=== PATIENT | male | born 1975 | race Caucasian/White ===

== ENCOUNTER → 2016-05-08 | Outpatient (CLI) | payer BC, OTHER ==
[2016-05-08 08:28] LABS: CHLORIDE,CL 107 mmol/L (98-110); SODIUM,NA 140 mmol/L (136-146)
--- NOTE | 2016-05-08 12:21 | US ---
EXAMINATION: Renal ultrasound HISTORY: Renal calculus COMPARISON: 09/05/2015 TECHNIQUE: Grayscale and color Doppler images obtained of the kidneys and bladder. FINDINGS: Right kidney measures 12.0 and the left kidney measures 11.3 cm [id number] without evide nce of hydronephrosis. Small bilateral shadowing stones are noted. Normal color Doppler flow bilater ally. No renal masses or perinephric fluid collections. The urinary bladder appears normal. The left urine jet is not identified. IMPRESSION: 1. Small shadowing stones bilaterally without evidence of obstructive uropathy.
== END ==
LOC: MW.US 07:53
PROVIDERS: ATTEND Internal Medicine
DX: N20.0 Calculus of kidney (principal); E66.9 Obesity, unspecified; R03.0 Elevated blood-pressure reading, without diagnosis of hypertension; E78.00 Pure hypercholesterolemia, unspecified
CPT/HCPCS: 36415; 76775; 76775-26; 80053; 80061; 84550; 85025

== ENCOUNTER 2016-09-08 16:48 | Emergency (ER) | payer BC ==
[2016-09-08 17:06] VITALS: BP 151/100
[2016-09-08] MEDS ORDERED: Diphtheria,Pertussis(Acell),Tetanus Vaccine 0.5 ML Syringe IM ONE (17:36)
--- NOTE | 2016-09-08 17:37 | EDM.PDOC ---
ED HPI GENERAL MEDICAL PROBLEM - General Chief Complaint: General Stated Complaint: PT STEP ON NAIL,LT FOOT Time Seen by Provider: 09/08/16 17:25 Source of Information: Reports: Patient History Limitations: Reports: No Limitations - History of Present Illness INITIAL COMMENTS - FREE TEXT/NARRATIVE: HISTORY AND PHYSICAL: History of present illness: [Patient comes to the emergency room complaining of right mid foot pain. States that he stepped on a prosper nail last evening around 10 PM that went through his shoe. He pulled the nail out of his foot and was able to work to work today in his steel toed boots without any problem. This evening he tried to put on a different shoe but experienced pain and swelling to his right foot. He cannot remember when his last tetanus shot was given and requests an update today. He' s had no fever chills. no drainage from the puncture site. No muscle or joint aches or pain. No abdominal pain, nausea or vomiting. He has no other complaints or concerns.] Review of systems: As per history of present illness and below otherwise all systems reviewed and negative. Past medical history: As per history of present illness and as reviewed below otherwise noncontributory. Surgical history: As per history of present illness and as reviewed below otherwise noncontributory. Social history: No reported history of drug or alcohol abuse. Family history: As per history of present illness and as reviewed below otherwise noncontributory. Physical exam: HEENT: Atraumatic, normocephalic. Lungs: Clear to auscultation, breath sounds equal bilaterally. Heart: S1S2, regular rate and rhythm. Extremities: Scant over puncture wound to right midfoot. No surrounding erythema , swelling or tenderness. Is otherwise atraumatic. No foot swelling noticed. Neurovascular unremarkable. Neuro: Awake, alert, oriented. Motor and sensory unremarkable throughout. Exam nonfocal. Therapeutics: [Adacel] Impression: [Puncture wound right foot] Plan: [Adacel updated in ER. Recommended he soak his foot in Epsom salts and try to dislodge the scab to the puncture site. Discussed with the patient that his blood pressure is elevated in the ER today. Recommend that he follow-up with PCP this week for reevaluation of his blood pressure. Will treat prophylactically with cephalexin. Rx written for Keflex 500 mg #30 sig 1 by mouth 3 times a day no refills. He is in agreement with today's plan. All the questions are answered and concerns are addressed.] Definitive disposition and diagnosis as appropriate pending reevaluation and review of above. - Related Data Allergies Allergy/AdvReac Type Severity Reaction Status Date / Time No Known Allergies Allergy Verified 09/08/16 17:06 Home Meds: Home Meds Cephalexin [IMW: Cephalexin] 500 mg PO TID #21 cap 09/08/16 [Rx] Pantoprazole Sodium [Protonix] 20 mg PO DAILY 09/08/16 [History] Past Medical History - Past Health History Medical/Surgical History: Denies Medical/Surgical History Cardiovascular History: Reports: Hypertension Gastrointestinal History: Reports: GERD Social & Family History - Family History Family Medical History: Noncontributory - Tobacco Use Smoking Status *Q: Never Smoker - Recreational Drug Use Recreational Drug Use: No ED ROS GENERAL - Review of Systems Review Of Systems: ROS reveals no pertinent complaints other than HPI. ED EXAM, GENERAL - Physical Exam Exam: See Below Course - Vital Signs Last Recorded V/S: Last Vital Signs Temp 97 F 09/08/16 17:02 Pulse 87 09/08/16 17:02 Resp 16 09/08/16 17:02 BP 151/100 H 09/08/16 17:02 Pulse Ox 96 09/08/16 17:02 - Orders/Labs/Meds Orders: Active Orders 24 hr Category Date Time Status Vaccines to be Administered [RC] PER UNIT ROUTINE Care 09/08/16 17:36 Active Meds: Medications Discontinued Medications Generic Name Dose Route Start Last Admin Trade Name Freq PRN Reason Stop Dose Admin Diphtheria/Tetanus/Acell Pertussis 0.5 ml 09/08/16 17:36 09/08/16 18:12 Adacel IM 09/08/16 17:37 0.5 ml .ONCE ONE Administration Departure - Departure Time of Disposition: 18:20 Disposition: Home, Self-Care 01 Condition: Good Clinical Impression: Puncture wound of right foot Qualifiers: Encounter type: initial encounter Qualified Code(s): S91.331A - Puncture wound without foreign body, right foot, initial encounter - Discharge Information Prescriptions: Cephalexin [IMW: Cephalexin] 500 mg PO TID #21 cap Instructions: Puncture Wound, [id number] Referrals: PCP,None [Primary Care Provider] - Forms: ED Department Discharge Additional Instructions: The following information is given to patients seen in the emergency department who are being discharged to home. This information is to outline your options for follow-up care. We provide all patients seen in our emergency department with a follow-up referral. The need for follow-up, as well as the timing and circumstances, are variable depending upon the specifics of your emergency department visit. If you don't have a primary care physician on staff, we will provide you with a referral. We always advise you to contact your personal physician following an emergency department visit to inform them of the circumstance of the visit and for follow-up with them and/or the need for any referrals to a consulting specialist. The emergency department will also refer you to a specialist when appropriate. This referral assures that you have the opportunity for follow-up care with a specialist. All of these measure are taken in an effort to provide you with optimal care, which includes your follow-up. Under all circumstances we always encourage you to contact your private physician who remains a resource for coordinating your care. When calling for follow-up care, please make the office aware that this follow-up is from your recent emergency room visit. If for any reason you are refused follow-up, please contact the [facility] emergency department at and asked to speak to the emergency department charge nurse. [facility] [address] [place] [id number] Follow-up with your primary care provider at the clinic listed above to review your blood pressure in the next week. Take antibiotics as prescribed. Your prescriptions been sent electronically to [place] [facility] in [employer] [facility] [employer]. Return to ER as needed as discussed. - My Orders Last 24 Hours: My Active Orders 09/08/16 17:36 Vaccines to be Administered [RC] PER UNIT ROUTINE - Assessment/Plan Last 24 Hours: My Active Orders 09/08/16 17:36 Vaccines to be Administered [RC] PER UNIT ROUTINE
== END 2016-09-08 18:27 | disposition home or self-care (01) ==
LOC: MW.ED 16:48
DX: S91.331A Puncture wound without foreign body, right foot, initial encounter (principal); I10 Essential (primary) hypertension; Z23 Encounter for immunization; K21.9 Gastro-esophageal reflux disease without esophagitis; Z79.899 Other long term (current) drug therapy; W45.0XXA Nail entering through skin, initial encounter
CPT/HCPCS: 90471; 90715; 99282; 99282-25

== ENCOUNTER 2017-06-26 16:41 | Emergency (ER) | payer BC ==
[2017-06-26] MEDS ORDERED: Sodium Chloride 0.9% 1,000 ML IV ONE (16:44)
--- NOTE | 2017-06-26 16:53 | EDM.PDOC ---
ED HPI GENERAL MEDICAL PROBLEM - General Chief Complaint: Chest Pain Stated Complaint: NUMBNESS OF FACE Time Seen by Provider: 06/26/17 16:45 - History of Present Illness INITIAL COMMENTS - FREE TEXT/NARRATIVE: HISTORY AND PHYSICAL: History of present illness: [42-year-old male presenting [facility] with one hour of left-sided jaw pain and left arm numbness with past medical history of hypertension. Patient states that today while sitting at his desk and watching YouTube he began to have a mild headache. This progressed to the point where he felt that the headache was extending into his neck. At approximately 1600 he began having left jaw pain and left arm numbness. Secondary to the headache and left arm numbness he presented to the emergency department for further evaluation. He denies any associated nausea, vomiting, diaphoresis, chest pain, palpitations, shortness of breath, or syncopal episodes. He does admit to over the past 6 month having episodes of chest tightness. He admits to having a history of hypertension however is not taking any medication secondary to "not needing them ". He does follow [facility] and was seen there in April. He states that at that time his blood pressure was not significant enough that medications were restarted. The left arm numbness and left jaw pain seemed to be relieved by the time he got to the emergency department at 1700 approximately 1 hour after it started. He continued to have headache as well as neck pain. states that up to this point he's been feeling his normal self and denies any recent illness. ] Review of systems: As per history of present illness and below otherwise all systems reviewed and negative. Past medical history: As per history of present illness and as reviewed below otherwise noncontributory. Surgical history: As per history of present illness and as reviewed below otherwise noncontributory. Social history: No reported history of drug or alcohol abuse. Family history: As per history of present illness and as reviewed below otherwise noncontributory. Physical exam: HEENT: Atraumatic, normocephalic, pupils reactive, negative for conjunctival pallor or scleral icterus, mucous membranes moist, throat clear, neck supple, nontender, trachea midline. Lungs: Clear to auscultation, breath sounds equal bilaterally, chest nontender. Heart: S1S2, regular, negative for clicks, rubs, or JVD. Abdomen: Soft, nondistended, nontender. Negative for masses or hepatosplenomegaly. Negative for costovertebral tenderness. Pelvis: Stable nontender. Genitourinary: Deferred. Rectal: Deferred. Extremities: Atraumatic, negative for cords or calf pain. Neurovascular unremarkable. Neuro: Awake, alert, oriented. Cranial nerves II through XII unremarkable. Cerebellum unremarkable. Motor and sensory unremarkable throughout. Exam nonfocal. Diagnostics: [CBC, CMP, troponin, EKG, CT head] Therapeutics: [] Impression: [Tension headache, uncontrolled hypertension type II] Plan: [Patient's headache was most likely related to his hypertension. When he came in his initial blood pressure was 184/114. We retook it approximate 30 minutes later and it was 154/84. He has been on multiple medications or his hypertension with side effects that he could not tolerate. He's been on 2 different ARB's, 2 different ashish inhibitors, hydrochlorothiazide, calcium channel odell, as well as 2 different beta blockers with all unwanted side effects. Did discuss with patient possible other medications that may be appropriate such as alpha antagonists or other centrally acting medications. He should also have further evaluation to see why he may have had this episode of increased hypertension. [facility] and I suggested that he follow-up within the next week to have further evaluation for this. At this time patient is comfortable and does not want to start a new medication. His CBC , CMP, troponin, EKG, and CT of the head were unremarkable. Patient was discharged in good condition with instruction to return to emergency department if he has any new or worsening symptoms.] neck pain Pain Score (Numeric/FACES): 3 - Related Data Allergies Allergy/AdvReac Type Severity Reaction Status Date / Time acetaminophen Allergy Vomiting Verified 06/26/17 16:46 [From Tylenol-Codeine #3] codeine Allergy Vomiting Verified 06/26/17 16:46 [From Tylenol-Codeine #3] Home Meds: Home Meds Pantoprazole Sodium [Protonix] 20 mg PO DAILY 09/08/16 [History] Past Medical History - Past Health History Medical/Surgical History: Denies Medical/Surgical History HEENT History: Reports: None Cardiovascular History: Reports: Hypertension Respiratory History: Reports: None Gastrointestinal History: Reports: GERD Genitourinary History: Reports: None Musculoskeletal History: Reports: None Neurological History: Reports: None Psychiatric History: Reports: None Endocrine/Metabolic History: Reports: None Hematologic History: Reports: None Immunologic History: Reports: None Oncologic (Cancer) History: Reports: None Dermatologic History: Reports: None - Past Surgical History Head Surgeries/Procedures: Reports: None HEENT Surgical History: Reports: None Cardiovascular Surgical History: Reports: None Respiratory Surgical History: Reports: None GI Surgical History: Reports: Hernia, Abdominal Male Surgical History: Reports: None Endocrine Surgical History: Reports: None Neurological Surgical History: Reports: None Musculoskeletal Surgical History: Reports: None Oncologic Surgical History: Reports: None Dermatological Surgical History: Reports: None Social & Family History - Family History Family Medical History: Noncontributory - Tobacco Use Smoking Status *Q: Never Smoker Second Hand Smoke Exposure: No - Caffeine Use Caffeine Use: Reports: None - Recreational Drug Use Recreational Drug Use: No ED ROS GENERAL - Review of Systems Review Of Systems: See Below ED EXAM, GENERAL - Physical Exam Exam: See Below Course - Vital Signs Last Recorded V/S: Last Vital Signs Temp 97.4 F 06/26/17 18:11 Pulse 83 06/26/17 18:11 Resp 18 06/26/17 18:11 BP 152/84 H 06/26/17 18:11 Pulse Ox 95 06/26/17 18:11 - Orders/Labs/Meds Orders: Active Orders 24 hr Category Date Time Status EKG Documentation Completion [RC] STAT Care 06/26/17 16:44 Active Chest 1V Frontal [CR] Stat Exams 06/26/17 16:44 Taken Head wo Cont [CT] Stat Exams 06/26/17 16:44 Taken Labs: Laboratory Tests 06/26/17 06/26/17 Range/Units 16:45 16:45 WBC 6.94 (4.0-11.0) K/uL RBC 4.78 (4.50-5.90) M/uL Hgb 16.1 (13.0-17.0) g/dL Hct 44.4 (38.0-50.0) % MCV 92.9 (80.0-98.0) fL MCH 33.7 H (27.0-32.0) pg MCHC 36.3 (31.0-37.0) g/dL RDW Std Deviation 42.7 (28.0-62.0) fl RDW Coeff of Chetan 13 (11.0-15.0) % Plt Count 162 (150-400) K/uL MPV 10.70 (7.40-12.00) fL Neut % (Auto) 53.4 (48.0-80.0) % Lymph % (Auto) 34.0 (16.0-40.0) % [place] % (Auto) 10.8 (0.0-15.0) % Eos % (Auto) 1.7 (0.0-7.0) % Baso % (Auto) 0.1 (0.0-1.5) % Neut # (Auto) 3.7 (1.4-5.7) K/uL Lymph # (Auto) 2.4 (0.6-2.4) K/uL [place] # (Auto) 0.8 (0.0-0.8) K/uL Eos # (Auto) 0.1 (0.0-0.7) K/uL Baso # (Auto) 0.0 (0.0-0.1) K/uL Nucleated RBC % 0.0 /100WBC Nucleated RBCs # 0 K/uL Sodium 136 (136-148) mmol/L Potassium 3.6 (3.5-5.1) mmol/L Chloride 102 (98-107) mmol/L Carbon Dioxide 22.3 (21.0-32.0) mmol/L BUN 13 (7.0-18.0) mg/dL Creatinine 1.2 (0.8-1.3) mg/dL Est Cr Clr Drug Dosing 88.02 mL/min Estimated GFR (MDRD) > 60.0 ml/min Glucose 121 H (74-106) mg/dL Calcium 8.6 (8.5-10.1) mg/dL Total Bilirubin 0.6 (0.2-1.0) mg/dL AST 40 H (15-37) IU/L ALT 82 H (14-63) IU/L Alkaline Phosphatase 87 (46-116) U/L Troponin I < 0.050 (0.000-0.056) ng/mL Total Protein 7.2 (6.4-8.2) g/dL Albumin 4.0 (3.4-5.0) g/dL Globulin 3.2 (2.0-3.5) g/dL Albumin/Globulin Ratio 1.3 (1.3-2.8) Meds: Medications Discontinued Medications Generic Name Dose Route Start Last Admin Trade Name Arline PRN Reason Stop Dose Admin Sodium Chloride 1,000 mls @ 999 mls/hr 06/26/17 16:44 06/26/17 17:08 Normal Saline IV 06/26/17 17:44 999 mls/hr STAT ONE Administration Departure - Departure Time of Disposition: 19:04 Disposition: Home, Self-Care 01 Condition: Good Clinical Impression: Uncontrolled stage 2 hypertension, Tension type headache - Discharge Information Referrals: PCP,None [Primary Care Provider] - Forms: ED Department Discharge Additional Instructions: My general discharge The following information is given to patients seen in the emergency department who are being discharged to home. This information is to outline your options for follow-up care. We provide all patients seen in our emergency department with a follow-up referral. The need for follow-up, as well as the timing and circumstances, are variable depending upon the specifics of your emergency department visit. If you don't have a primary care physician on staff, we will provide you with a referral. We always advise you to contact your personal physician following an emergency department visit to inform them of the circumstance of the visit and for follow-up with them and/or the need for any referrals to a consulting specialist. The emergency department will also refer you to a specialist when appropriate. This referral assures that you have the opportunity for follow-up care with a specialist. All of these measure are taken in an effort to provide you with optimal care, which includes your follow-up. Under all circumstances we always encourage you to contact your private physician who remains a resource for coordinating your care. When calling for follow-up care, please make the office aware that this follow-up is from your recent emergency room visit. If for any reason you are refused follow-up, please contact the [facility] Emergency Department at and asked to speak to the emergency department charge nurse. [facility] [address] [place] [id number]
[2017-06-26 17:32] LABS: CHLORIDE,CL 102 mmol/L (98-107); SODIUM,NA 136 mmol/L (136-148)
[2017-06-26 18:12] VITALS: BP 152/84
--- NOTE | 2017-06-27 09:23 | CT ---
EXAM DATE: 06/26/17 PATIENT'S AGE: 42 Patient: ZULEMA ROBLES Facility: [place], [place] Site . Site : 1975 Study: CT Head [id number] 5:18:56 PM Ordering Physician: Doctor Blandon Final Report: INDICATION: Hypertension. Facial numbness. Comparison none. TECHNIQUE: Axial CT of the head without contrast. FINDINGS: Normal brain parenchymal morphology. No acute intracranial hemorrhage, focal edema, mass effect, or fracture. No midline shift. No abnormal ventricular dilatation. Normal calvarium and skull base. Visualized paranasal sinuses and mastoid air cells are clear. Visualized orbits are unremarkable. IMPRESSION: 1. No acute intracranial abnormality. 2. Normal brain parenchymal morphology. Please note that all CT scans at this facility use dose modulation, iterative reconstruction, and/or weight-based dosing when appropriate to reduce radiation dose to as low as reasonably achievable. Dictated by Jim Gunn MD @ Jun 26 2017 5:43PM (Electronic Signature) Report Signed by Proxy. MTDD
--- NOTE | 2017-06-27 09:28 | CR ---
EXAM DATE: 06/26/17 PATIENT'S AGE: 42 Patient: ZULEMA ROBLES Facility: [place], [place] Site . Site : 1975 Study: XRay Chest [id number]/[id number] 5:20:49 PM Ordering Physician: Doctor Blandon Final Report: Indication: Hypertension Technique: Chest 1 view Comparison: April 07, 2010. Findings/Impression: Cardiovascular and mediastinum: Heart size and vasculature are normal in caliber and appearance. Mediastinum is within normal limits. Lungs and pleural space: Lungs are clear. No sign of infiltrate or mass. No sign of pleural effusion. No pneumothorax. Bones and soft tissues: No significant findings. Dictated by Ida Boss MD @ Jun 26 2017 6:01PM (Electronic Signature) Report Signed by Proxy. DOROTHY
== END 2017-06-26 19:18 | disposition home or self-care (01) ==
LOC: MW.ED 16:41
DX: G44.209 Tension-type headache, unspecified, not intractable (principal); I10 Essential (primary) hypertension; Z88.5 Allergy status to narcotic agent; Z88.8 Allergy status to other drugs, medicaments and biological substances; Z79.899 Other long term (current) drug therapy
CPT/HCPCS: 36415; 70450; 71045; 80053; 84484; 85025; 96360; 99284; J7040

== ENCOUNTER 2019-09-19 08:39 | Emergency (ER) | payer OTHER, BC ==
[2019-09-19] MEDS ORDERED: Sodium Chloride 0.9% 10 ML Syringe FLUSH PRN (09:11)
[2019-09-19] MEDS ORDERED: Sodium Chloride 0.9% 2.5 ML Syringe FLUSH PRN (09:11)
[2019-09-19] MEDS ORDERED: Ketorolac 30 MG/ML SDV IVPUSH ONE (09:19)
[2019-09-19] MEDS ORDERED: Acetaminophen 500 MG Tab PO ONE (09:19)
--- NOTE | 2019-09-19 09:22 | EDM.PDOC ---
ED [facility] GENERAL MEDICAL PROBLEM - General Chief Complaint: Genitourinary Problem Stated Complaint: KIDNEY STONE Time Seen by Provider: 09/19/19 08:43 Source of Information: Reports: Patient, Old Records History Limitations: Reports: No Limitations - History of Present Illness INITIAL COMMENTS - FREE TEXT/NARRATIVE: 44-year-old male with a past medical history of kidney stones, hypertension, GERD and hyperlipidemia presenting with flank pain. Patient reports the onset of left-sided flank pain radiating to the left upper quadrant around 630 this morning. Pain is been constant since the onset, rated as 9 out of 10, and described as "dull". Nothing makes it better or worse. States this feels similar to prior kidney stones. No self treatment prior to arrival. Denies fever, chills, nausea, vomiting, trauma, hematemesis, bloody stools, diarrhea, testicular pain or swelling, penile discharge, or recent illness. ROS: A 10-point review of systems was negative, except as noted in the HPI (or in the ROS section of this note). Past medical history: Reviewed, no additional pertinent history. Surgical history: Reviewed in system, no additional pertinent history. Social history: Reviewed in system, no additional pertinent history. Family history: Reviewed in system, no additional pertinent history. PHYSICAL EXAM Vital signs reviewed. Nursing notes reviewed. Constitutional: Awake, alert, non-distressed. Head: Normocephalic, atraumatic. Eyes: EOMI, conjunctiva normal, no discharge, no scleral icterus. Ears, Nose, Throat: External ears and nose normal, moist oral mucosa. Cardiovascular: 2+ radial pulse, capillary refill less than 2 seconds. Pulmonary: normal work of breathing, no accessory muscle use. Abdomen/GI: Soft, nontender, nondistended, no guarding or rigidity, no masses. No CVA tenderness. Musculoskeletal: No deformities. Integumentary: Appropriate color for ethnicity, warm, dry, no pallor or jaundice, no rash. Neurologic: Alert, answering questions appropriately, normal speech, no facial droop, moving all extremities well. Psychiatric: Appropriate mood and affect, normal thought process. - Related Data Allergies Allergy/AdvReac Type Severity Reaction Status Date / Time acetaminophen Allergy Vomiting Verified 02/06/18 10:47 [From Tylenol-Codeine #3] codeine Allergy Vomiting Verified 02/06/18 10:47 [From Tylenol-Codeine #3] lisinopril Allergy Dizziness Verified 02/06/18 10:47 Home Meds: Home Meds Pantoprazole Sodium [Protonix] 40 mg PO QAM 09/08/16 [History] Cholecalciferol (Vitamin D3) [Vitamin D3] 2,000 unit PO DAILY 02/06/18 [History] Fish Oil/[place]-3 Fatty Acids [Fish Oil 1,000 MG] 1,000 mg PO BID 02/06/18 [History] Losartan Potassium 25 mg PO QAM 02/06/18 [History] Acetaminophen [Acetaminophen Extra Strength] 500 - 1,000 mg PO Q6H PRN #30 tablet 09/19/19 [Rx] Ibuprofen 400 mg PO Q6H PRN #30 tablet 09/19/19 [Rx] Tamsulosin [Flomax] 0.4 mg PO BEDTIME 14 Days #14 cap.er 09/19/19 [Rx] oxyCODONE 5 - 10 mg PO Q6H PRN #20 tab 09/19/19 [Rx] Past Medical History - Past Health History Medical/Surgical History: Denies Medical/Surgical History HEENT History: Reports: Allergic Rhinitis Cardiovascular History: Reports: Hypertension Respiratory History: Reports: Sleep Apnea Other Respiratory History: uses CPAP Gastrointestinal History: Reports: GERD, Helicobacter Pylori, PUD Other Gastrointestinal History: hx of Barretts Esophagus Genitourinary History: Reports: Renal Calculus Musculoskeletal History: Reports: Back Pain, Chronic, Fracture Other Musculoskeletal History: hc of fx thumb and pinky finger Neurological History: Reports: Neuropathy, Peripheral, Other (See Below) Other Neuro History: hx of lumbar degenerative disc disease Psychiatric History: Reports: None Endocrine/Metabolic History: Reports: Obesity/BMI 30+ Hematologic History: Reports: None Immunologic History: Reports: None Oncologic (Cancer) History: Reports: None Dermatologic History: Reports: None - Past Surgical History Head Surgeries/Procedures: Reports: None HEENT Surgical History: Reports: Eye Surgery Other HEENT Surgeries/Procedures: hx of ORIF to replace right orbital floor (has plastic plates) GI Surgical History: Reports: Hernia, Inguinal Musculoskeletal Surgical History: Reports: ORIF Other Musculoskeletal Surgeries/Procedures:: right orbital fx Social & Family History - Family History Family Medical History: Noncontributory - Tobacco Use Smoking Status *Q: Never Smoker Second Hand Smoke Exposure: No - Caffeine Use Caffeine Use: Reports: None - Alcohol Use Days Per Week of Alcohol Use: 2 Number of Drinks Per Day: 3 Total Drinks Per Week: 6 - Recreational Drug Use Recreational Drug Use: No ED ROS GENERAL - Review of Systems Review Of Systems: See Below ED EXAM, RENAL/ - Physical Exam Exam: See Below Course - Vital Signs Text/Narrative:: Patient hemodynamically stable, afebrile, well-appearing, looks nontoxic. Differential diagnosis includes but is not limited to: Kidney stone, pyelonephritis, splenic infarction, AAA, UTI, mesenteric ischemia, epiploic appendagitis, bowel obstruction, ileus, pneumonia, etc. Pain well controlled after acetaminophen and Toradol. Labs are reassuring. Urinalysis shows large blood but no evidence of infection. CT abdomen pelvis with contrast demonstrates a 5.7 mm stone within the left ureter and multiple nonobstructing calculi within the left kidney. Symptoms are well controlled and there is no evidence of infection. Patient can discharge home with outpatient urology clinic follow-up. Will be given a strainer. Prescription sent for extra strength Tylenol, ibuprofen, tamsulosin, and a short course of oxycodone for severe breakthrough pain. I counseled him extensively about return precautions for severe pain, vomiting, chills, or fever. Plan: Patient is stable to discharge home with outpatient urology clinic follow- up. Strict emergency department return precautions were provided, patient indicated understanding. All questions were answered prior to departure. Discharged in good condition. Last Recorded V/S: Last Vital Signs Temp 35.3 C L 09/19/19 08:51 Pulse 87 09/19/19 08:51 Resp 18 09/19/19 08:51 BP 167/108 H 09/19/19 08:56 Pulse Ox 98 09/19/19 08:51 - Orders/Labs/Meds Orders: Active Orders 24 hr Category Date Time Status Pulse Oximetry [RC] ASDIRECTED Care 09/19/19 09:11 Active Sodium Chloride 0.9% [Saline Flush] Med 09/19/19 09:11 Active 10 ml FLUSH ASDIRECTED PRN Sodium Chloride 0.9% [Saline Flush] Med 09/19/19 09:11 Active 2.5 ml FLUSH ASDIRECTED PRN Saline Lock Insert [OM.PC] Stat Oth 09/19/19 09:11 Ordered Medication Orders Sodium Chloride (Saline Flush) 10 ml FLUSH ASDIRECTED PRN PRN Reason: Keep Vein Open Last Admin: 09/19/19 09:45 Dose: 10 ml Documented by: FARZANA Sodium Chloride (Saline Flush) 2.5 ml FLUSH ASDIRECTED PRN PRN Reason: Keep Vein Open Last Admin: 09/19/19 09:45 Dose: 2.5 ml Documented by: FARZANA Labs: Laboratory Tests 09/19/19 09/19/19 09/19/19 Range/Units 09:05 09:43 09:43 WBC 5.21 (4.0-11.0) K/uL RBC 4.88 (4.50-5.90) M/uL Hgb 15.8 (13.0-17.0) g/dL Hct 45.8 (38.0-50.0) % MCV 93.9 (80.0-98.0) fL MCH 32.4 H (27.0-32.0) pg MCHC 34.5 (31.0-37.0) g/dL RDW Std Deviation 43.7 (28.0-62.0) fl RDW Coeff of [place] 13 (11.0-15.0) % Plt Count 145 L (150-400) K/uL MPV 10.70 (7.40-12.00) fL Neut % (Auto) 60.4 (48.0-80.0) % Lymph % (Auto) 27.1 (16.0-40.0) % [place] % (Auto) 10.6 (0.0-15.0) % Eos % (Auto) 1.7 (0.0-7.0) % Baso % (Auto) 0.2 (0.0-1.5) % Neut # (Auto) 3.2 (1.4-5.7) K/uL Lymph # (Auto) 1.4 (0.6-2.4) K/uL [place] # (Auto) 0.6 (0.0-0.8) K/uL Eos # (Auto) 0.1 (0.0-0.7) K/uL Baso # (Auto) 0.0 (0.0-0.1) K/uL Nucleated RBC % 0.0 /100WBC Nucleated RBCs # 0 K/uL Sodium 136 (136-148) mmol/L Potassium 3.7 (3.5-5.1) mmol/L Chloride 101 (98-107) mmol/L Carbon Dioxide 28.6 (21.0-32.0) mmol/L BUN 17 (7.0-18.0) mg/dL Creatinine 1.2 (0.8-1.3) mg/dL Est Cr Clr Drug Dosing TNP Estimated GFR (MDRD) > 60.0 ml/min Glucose 128 H (74-106) mg/dL Calcium 9.1 (8.5-10.1) mg/dL Total Bilirubin 0.9 (0.2-1.0) mg/dL AST 55 H (15-37) IU/L ALT 89 H (14-63) IU/L Alkaline Phosphatase 67 (46-116) U/L Total Protein 6.9 (6.4-8.2) g/dL Albumin 3.8 (3.4-5.0) g/dL Globulin 3.1 (2.6-4.0) g/dL Albumin/Globulin Ratio 1.2 (0.9-1.6) Lipase 97 (73-393) U/L Urine Color YELLOW Urine Appearance CLEAR Urine pH 5.5 (5.0-8.0) Ur Specific [place] 1.020 (1.001-1.035) Urine Protein NEGATIVE (NEGATIVE) mg/dL Urine Glucose (UA) NEGATIVE (NEGATIVE) mg/dL Urine Ketones NEGATIVE (NEGATIVE) mg/dL Urine Occult Blood LARGE H (NEGATIVE) Urine Nitrite NEGATIVE (NEGATIVE) Urine Bilirubin NEGATIVE (NEGATIVE) Urine Urobilinogen 0.2 (<2.0) EU/dL Ur Leukocyte Esterase NEGATIVE (NEGATIVE) Urine RBC 8-12 (0-2/HPF) Urine WBC 0-1 (0-5/HPF) Ur Epithelial Cells FEW (NONE-FEW) Urine Bacteria FEW (NEGATIVE) Urine Mucus LIGHT (NONE-MOD) Meds: Medications Generic Name Dose Route Start Last Admin Trade Name Arline PRN Reason Stop Dose Admin Sodium Chloride 10 ml 09/19/19 09:11 09/19/19 09:45 Saline Flush FLUSH 10 ml ASDIRECTED PRN Administration Keep Vein Open Sodium Chloride 2.5 ml 09/19/19 09:11 09/19/19 09:45 Saline Flush FLUSH 2.5 ml ASDIRECTED PRN Administration Keep Vein Open Discontinued Medications Generic Name Dose Route Start Last Admin Trade Name Arline PRN Reason Stop Dose Admin Acetaminophen 1,000 mg 09/19/19 09:19 09/19/19 09:45 Tylenol Extra Strength PO 09/19/19 09:20 1,000 mg ONETIME ONE Administration Iopamidol 100 ml 09/19/19 10:29 09/19/19 10:30 Isovue Multipack-370 (76%) IVPUSH 09/19/19 10:30 100 ml ONETIME ONE Administration Ketorolac Tromethamine 15 mg 09/19/19 09:19 09/19/19 09:44 Toradol IVPUSH 09/19/19 09:20 15 mg ONETIME ONE Administration Departure - Departure Time of Disposition: 10:53 Disposition: Home, Self-Care 01 Condition: Good Clinical Impression: Ureterolithiasis - Discharge Information *PRESCRIPTION DRUG MONITORING PROGRAM REVIEWED*: Not Applicable *COPY OF PRESCRIPTION DRUG MONITORING REPORT IN PATIENT ERICK: Not Applicable Prescriptions: Acetaminophen [Acetaminophen Extra Strength] 500 - 1,000 mg PO Q6H PRN #30 tablet PRN Reason: Pain (Mild 1-3) Tamsulosin [Flomax] 0.4 mg PO BEDTIME 14 Days #14 cap.er Ibuprofen 400 mg PO Q6H PRN #30 tablet PRN Reason: Pain (Mild 1-3) oxyCODONE 5 - 10 mg PO Q6H PRN #20 tab PRN Reason: Pain (Severe 7-10) Instructions: Kidney Stones, [id number] Referrals: [facility] - Urology [Provider Group] - 1 Week (For follow-up care of your kidney stones.) Forms: ED Department Discharge Additional Instructions: Thank you for choosing the [facility] emergency department in [place] for your medical needs today. It was a pleasure caring for you. You were seen in the emergency department for left flank pain. You were found to have a 5.7 mm kidney stone on the left side along with multiple other kidney stones in the left and right kidneys. There is no evidence of infection at this point so we do not need prescribed antibiotics. Pain control consists of extra strength acetaminophen, ibuprofen, heating pads, and oxycodone as needed for severe pain. I would like for you to follow-up with the urology clinic in the next 1 to 2 weeks for reevaluation. You will be given a strainer to try to retrieve the stone in the urine. If your pain becomes severe, if you have repeat episodes of vomiting, chills, or fever of 100.4 higher, come back to the emergency department immediately. Please return the emergency department immediately if your symptoms worsen or if you feel worse. The following information is given to patients seen in the emergency department who are being discharged. This information is to outline your options for follow-up care. We provide all patients seen in our emergency department with a follow-up referral. The need for follow-up, as well as the timing and circumstances, are variable depending upon the specifics of your emergency department visit. If you don't have a primary care physician on staff, we will provide you with a referral. We always advise you to contact your personal physician following an emergency department visit to inform them of the circumstance of the visit and for follow-up with them and/or the need for any referrals to a consulting specialist. The emergency department will also refer you to a specialist when appropriate. This referral assures that you have the opportunity for follow-up care with a specialist. All of these measure are taken in an effort to provide you with optimal care, which includes your follow-up. Under all circumstances we always encourage you to contact your private physician who remains a resource for coordinating your care. When calling for follow-up care, please make the office aware that this follow-up is from your recent emergency room visit. If for any reason you are refused follow-up, please contact the [facility] Emergency Department at and asked to speak to the emergency department charge nurse. If you do not have a primary care physician that is caring for you, you can contact these clinics below to set up an appointment to establish care: [facility] - Primary Care [address] [place] [address] [facility] [address] [place] [address] Sepsis Event Note (ED) - Evaluation Sepsis Screening Result: No Definite Risk - Focused Exam Vital Signs: Vital Signs Temp Pulse Resp BP Pulse Ox 09/19/19 08:56 167/108 H 09/19/19 08:51 35.3 C L 87 18 176/108 H 98 - My Orders Last 24 Hours: My Active Orders 09/19/19 09:11 Pulse Oximetry [RC] ASDIRECTED Sodium Chloride 0.9% [Saline Flush] 10 ml FLUSH ASDIRECTED PRN Sodium Chloride 0.9% [Saline Flush] 2.5 ml FLUSH ASDIRECTED PRN Saline Lock Insert [OM.PC] Stat - Assessment/Plan Last 24 Hours: My Active Orders 09/19/19 09:11 Pulse Oximetry [RC] ASDIRECTED Sodium Chloride 0.9% [Saline Flush] 10 ml FLUSH ASDIRECTED PRN Sodium Chloride 0.9% [Saline Flush] 2.5 ml FLUSH ASDIRECTED PRN Saline Lock Insert [OM.PC] Stat
[2019-09-19 10:09] LABS: BLOOD UREA NITROGEN,BUN 17 mg/dL (7.0-18.0); CARBON DIOXIDE,CO2 28.6 mmol/L (21.0-32.0); CHLORIDE,CL 101 mmol/L (98-107); GLUCOSE RANDOM 128 mg/dL (74-106); LIPASE 97 U/L (73-393); POTASSIUM,K 3.7 mmol/L (3.5-5.1); SODIUM,NA 136 mmol/L (136-148)
[2019-09-19] MEDS ORDERED: Iopamidol 755 MG/ML 200 ML Multipack Bottle IVPUSH ONE (10:29)
--- NOTE | 2019-09-19 10:54 | CT ---
CT abdomen and pelvis Technique: Multiple axial sections were obtained from above the dome of the diaphragm inferiorly through the pubic symphysis. Intravenous contrast was utilized. No oral contrast has been given. Findings: Left kidney collecting system is slightly prominent. Proximal left ureter is mildly dilated. These findings are caused by a 5.7 mm stone within the mid left ureter slightly below the level of the iliac crests. No additional ureteral calculi are seen. Multiple nonobstructing calculi are seen within the left kidney with single nonobstructing calculi are noted within the right kidney. Small low density finding most likely relating to small cyst is noted within the inferior right kidney measuring 7 mm. Kidneys are otherwise unremarkable. Visualized lung bases show nothing acute. Liver contains fatty infiltration. No abnormality seen within the spleen. Adrenal glands show no nodule. Pancreas is within normal limits. Gallbladder contains no calcified gallstones. Aorta shows no aneurysm. No retroperitoneal adenopathy or mesenteric abnormalities are seen. Appendix is seen which is normal. No pelvic mass or adenopathy is seen. No free fluid or inflammatory change is appreciated. Impression: 1. 5.7 mm obstructing stone within the mid left ureter causing proximal hydronephrosis. Multiple nonobstructing calculi within the left kidney. Single nonobstructing calculi within the right kidney. Small lower pole right renal cyst. 2. Fatty infiltration within the liver. 3. No other acute abnormality is appreciated. Diagnostic code #3 This report was dictated in MDT
[2019-09-19 11:06] VITALS: BP 134/88; PULSE 74
== END 2019-09-19 11:08 | disposition home or self-care (01) ==
LOC: MW.ED 08:39
DX: N13.2 Hydronephrosis with renal and ureteral calculous obstruction (principal); I10 Essential (primary) hypertension; K21.9 Gastro-esophageal reflux disease without esophagitis; E66.9 Obesity, unspecified; Z88.6 Allergy status to analgesic agent; Z68.41 Body mass index [BMI] 40.0-44.9, adult; Z88.5 Allergy status to narcotic agent; Z79.899 Other long term (current) drug therapy
CPT/HCPCS: 36415; 74177; 80053; 81001; 83690; 85025; 96374; 99284; A9270; J1885; Q9967

== ENCOUNTER 2020-11-18 07:44 | Day surgery (SDC) | payer OTHER, BC ==
[~2020-11-18 07:44] MED LIST: Lactated Ringers 1,000 ML IV SCH; Propofol 200 MG/20 ML SDV ONE; fentaNYL 100 MCG/2 ML SDV ONE
--- NOTE | 2020-11-18 08:05 | PCM.PREANE ---
Preanesthetic Assessment - Procedure Proposed Procedure: EGD - Anesthesia/Transfusion/Family Hx Anesthesia History: Prior Anesthesia Without Reaction Other Type of Anesthesia Reaction Comment: remembers scope removal during previous EGD Family History of Anesthesia Reaction: No Transfusion History: No Prior Transfusion(s) - Review of Systems General: No Symptoms Pulmonary: No Symptoms (Quit smoking 2008, ANTONETTE uses CPAP) Cardiovascular: No Symptoms (HTN, HLD) Gastrointestinal: No Symptoms (GERD well controlled) Neurological: No Symptoms Other: Reports: None (h/o Kidney stones) - Physical Assessment NPO Status Date: 11/17/20 NPO Status Time: 19:30 Vital Signs: Last Vital Signs Temp 97.3 F 11/18/20 07:51 Pulse 73 11/18/20 07:51 Resp 16 11/18/20 07:51 BP 145/97 H 11/18/20 07:51 Pulse Ox 97 11/18/20 07:51 Height: 5 ft 11 in Weight: 128.82 kg (Obesity) ASA Class: 2 Mental Status: Alert & Oriented x3 Airway Class: Mallampati = 2 Dentition: Reports: Normal Dentition Thyro-Mental Finger Breadths: 3 Mouth Opening Finger Breadths: 3 ROM/Head Extension: Full Lungs: Clear to Auscultation, Normal Respiratory Effort Cardiovascular: Regular Rate, Regular Rhythm - Allergies Allergies/Adverse Reactions: Allergies Allergy/AdvReac Type Severity Reaction Status Date / Time acetaminophen Allergy Vomiting Verified 11/14/20 14:43 [From Tylenol-Codeine #3] codeine Allergy Vomiting Verified 11/14/20 14:43 [From Tylenol-Codeine #3] - Acknowledgements Anesthesia Type Planned: General Anesthesia Pt an Appropriate Candidate for the Planned Anesthesia: Yes Alternatives and Risks of Anesthesia Discussed w Pt/Guardian: Yes Pt/Guardian Understands and Agrees with Anesthesia Plan: Yes PreAnesthesia Questionnaire - Past Health History Medical/Surgical History: Denies Medical/Surgical History HEENT History: Reports: Allergic Rhinitis Cardiovascular History: Reports: Hypertension Respiratory History: Reports: Sleep Apnea Other Respiratory History: uses CPAP Gastrointestinal History: Reports: GERD, Helicobacter Pylori, PUD Other Gastrointestinal History: hx of Barretts Esophagus Genitourinary History: Reports: Renal Calculus Musculoskeletal History: Reports: Fracture Other Musculoskeletal History: hc of fx thumb and pinky finger, hx right orbital fx, right boxer fx Neurological History: Reports: Neuropathy, Peripheral, Other (See Below) Other Neuro History: hx of lumbar degenerative disc disease Psychiatric History: Reports: None Endocrine/Metabolic History: Reports: Obesity/BMI 30+ Hematologic History: Reports: None Immunologic History: Reports: None Oncologic (Cancer) History: Reports: None Dermatologic History: Reports: None - Past Surgical History Head Surgeries/Procedures: Reports: None HEENT Surgical History: Reports: Eye Surgery Other HEENT Surgeries/Procedures: hx of ORIF to replace right orbital floor (has plastic plates) Cardiovascular Surgical History: Reports: None Respiratory Surgical History: Reports: None GI Surgical History: Reports: Colonoscopy, EGD, Hernia, Inguinal Male Surgical History: Reports: None Endocrine Surgical History: Reports: None Neurological Surgical History: Reports: None Musculoskeletal Surgical History: Reports: ORIF Other Musculoskeletal Surgeries/Procedures:: right orbital fx Oncologic Surgical History: Reports: None Dermatological Surgical History: Reports: None - SUBSTANCE USE Tobacco Use Status *Q: Former Tobacco User Tobacco Use Within Last Twelve Months: No Recreational Drug Use History: No - HOME MEDS Home Medications: Home Meds Pantoprazole Sodium [Protonix] 40 mg PO QAM 09/08/16 [History] Cholecalciferol (Vitamin D3) [Vitamin D3] 2,000 unit PO DAILY 02/06/18 [History] Fish Oil/[place]-3 Fatty Acids [Fish Oil 1,000 MG] 2 tab PO DAILY 02/06/18 [History] Losartan Potassium 25 mg PO QAM 02/06/18 [History] hydroCHLOROthiazide [Hydrochlorothiazide] 25 mg PO DAILY 11/14/20 [History] - CURRENT (IN HOUSE) MEDS Current Meds: Current Medications Lactated Ringer's (Ringers, Lactated) 1,000 mls @ 125 mls/hr IV ASDIRECTED FOR[facility], 1928–1983 Last Admin: 11/18/20 07:55 Dose: 125 mls/hr Documented by: Discontinued Medications Fentanyl (Fentanyl 100 Mcg/2 Ml Sdv) Confirm Administered Dose 100 mcg .ROUTE .STK-MED ONE Stop: 11/18/20 07:42 Lidocaine HCl (Lidocaine 1% 5 Ml Sdv) Confirm Administered Dose 5 ml .ROUTE .STK-MED ONE Stop: 11/18/20 07:41 Propofol (Propofol 200 Mg/20 Ml Sdv) Confirm Administered Dose 200 mg .ROUTE .STK-MED ONE Stop: 11/18/20 07:42
[2020-11-18] MEDS ORDERED: Propofol 200 MG/20 ML SDV ONE ×2 (08:20→08:39)
--- NOTE | 2020-11-18 08:55 | PCM.OPNOTE ---
- General Post-Op/Procedure Note Date of Surgery/Procedure: 11/18/20 Operative Procedure(s): Esophagogastroduodenoscopy with gastric and esophageal biopsies Pre Op Diagnosis: Epigastric pain with history of gastritis. Gastroesophageal reflux disease with history of Alfred's esophagus. Post-Op Diagnosis: Mild to moderate chronic gastritis. 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 Anesthesia Technique: MAC (ASA III) Primary Surgeon: Tera Blood Loss Prevention Specialist: Robert Mendoza Condition: Good Free Text/Narrative:: DICTATION 6 a one-month CPT CODE 22493
[2020-11-18] MEDS ORDERED: Lactated Ringers 1,000 ML IV SCH (09:00)
--- NOTE | 2020-11-18 09:01 | PCM.POSTAN ---
POST ANESTHESIA ASSESSMENT - MENTAL STATUS Mental Status: Alert, Oriented - VITAL SIGNS Vital Signs: Last Vital Signs Temp 97.3 F 11/18/20 07:51 Pulse 83 11/18/20 08:58 Resp 14 11/18/20 08:58 BP 109/73 11/18/20 08:58 Pulse Ox 93 L 11/18/20 08:58 - RESPIRATORY Respiratory Status: Respiratory Rate WNL, Airway Patent, O2 Saturation Stable - CARDIOVASCULAR CV Status: Pulse Rate WNL, Blood Pressure Stable - GASTROINTESTINAL GI Status: No Symptoms - PAIN Pain Score: 0 - POST OP HYDRATION Hydration Status: Adequate & Stable
--- NOTE | 2020-11-18 09:04 | PCM48HPAN ---
Post Anesthesia Note - EVALUATION WITHIN 48HRS OF ANESTHETIC Vital Signs in Normal Range: Yes Patient Participated in Evaluation: Yes Respiratory Function Stable: Yes Airway Patent: Yes Cardiovascular Function Stable: Yes Hydration Status Stable: Yes Pain Control Satisfactory: Yes Nausea and Vomiting Control Satisfactory: Yes Mental Status Recovered: Yes Vital Signs: Last Vital Signs Temp 97.3 F 11/18/20 07:51 Pulse 83 11/18/20 09:03 Resp 11 L 11/18/20 09:03 BP 116/71 11/18/20 09:03 Pulse Ox 93 L 11/18/20 09:03 - COMMENTS/OBSERVATIONS Free Text/Narrative:: Pt doing well post-op. VSS. No apparent anesthetic complications. Dr. Jim Vee
[2020-11-18 09:19] VITALS: BP 119/69; PULSE 80
--- NOTE | 2020-11-18 12:27 | OR ---
SURGEON: Tera Blood M.D. DATE OF PROCEDURE: 11/18/2020 OPERATION PERFORMED: Esophagogastroduodenoscopy with gastric and esophageal biopsies. PRIMARY SURGEON: Tera Blood M.D. PRODUCT DESIGN MANAGER: [employer] Tender: SALINA Gomez student. ANESTHESIA: MAC. ASA CLASSIFICATION: III. PREOPERATIVE DIAGNOSES: 1. Epigastric pain with history of chronic gastritis. 2. Gastroesophageal reflux disease. 3. History of Alfred's esophagus. POSTOPERATIVE DIAGNOSES: 1. Oiuu-in-cukkrnry chronic gastritis. 2. 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 DESCRIPTION OF PROCEDURE: The patient was taken to the endoscopy room and positioned on the endoscopy table in the supine position. Time-out was called for appropriate identification of patient and procedure. Monitored anesthesia care was provided. The bite block was placed between the patient's teeth. The gastroscope was inserted through the bite block into the oropharynx and advanced without difficulty through the esophagus and stomach into the duodenum where examination was now carried out in a retrograde fashion. The duodenum showed no acute inflammatory changes or ulcerations. The gastroscope was withdrawn to the stomach, which did show [id number] chronic appearing gastritis. Antral biopsies were obtained to look for the presence of Helicobacter pylori. The gastroscope was retroflexed to visualize the proximal stomach. No tumors or ulcerations or polyps were noted proximally, and I did not see any significant hiatal hernia. The gastroscope was then carefully withdrawn slowly visualizing the greater and lesser curvatures. Again, no ulcerations were noted. The GE junction was well defined but did show changes consistent with esophagitis and possible Alfred's esophagus. Separate biopsies of the distal esophagus were obtained. The esophagus itself demonstrated good contractility. No mid or proximal lesions were identified. The vocal cords were briefly visualized as the scope was withdrawn. The vocal cords did move symmetrically and no vocal cord lesions were identified. The gastroscope was then removed with the patient having tolerated the procedure well. He was taken to recovery room in satisfactory condition. LEONCIO / BREANNA /[id number]
== END 2020-11-18 09:30 | disposition home or self-care (01) ==
LOC: MW.SDS 07:44
PROVIDERS: ATTEND Surgery
DX: K29.50 Unspecified chronic gastritis without bleeding (principal); K21.00 Gastro-esophageal reflux disease with esophagitis, without bleeding; J45.909 Unspecified asthma, uncomplicated; E78.00 Pure hypercholesterolemia, unspecified; I10 Essential (primary) hypertension; E66.9 Obesity, unspecified; G47.33 Obstructive sleep apnea (adult) (pediatric); G62.9 Polyneuropathy, unspecified; G47.30 Sleep apnea, unspecified; Z88.8 Allergy status to other drugs, medicaments and biological substances; Z79.899 Other long term (current) drug therapy; Z98.890 Other specified postprocedural states; Z87.891 Personal history of nicotine dependence; Z68.39 Body mass index [BMI] 39.0-39.9, adult
CPT/HCPCS: 43239; 88305; J2704; J3010; J7120; 00731

== ENCOUNTER 2020-12-19 08:10 | Day surgery (SDC) | payer OTHER, BC ==
[~2020-12-19 08:10] MED LIST changes: +Albuterol 0.083% 2.5 MG/3 ML Neb Soln NEB PRN; +HYDROmorphone 1 MG/ML Syringe IVPUSH PRN; +Metoclopramide 10 MG/2 ML SDV IVPUSH PRN; +Morphine 2 MG/ML SYRINGE IVPUSH PRN; +Naloxone 0.4 MG/ML Syringe IVPUSH PRN; +Ondansetron 4 MG/2 ML SDV IVPUSH PRN; -Propofol 200 MG/20 ML SDV ONE; +cefOXitin 2 GM in Premix Bag 1 BAG IV ONE; +fentaNYL 100 MCG/2 ML SDV IVPUSH PRN; -fentaNYL 100 MCG/2 ML SDV ONE
[2020-12-19] MEDS ORDERED: Lidocaine 2% 100 MG/5 ML Syringe ONE (08:34)
[2020-12-19] MEDS ORDERED: Rocuronium Bromide 50 MG/5 ML Syringe ONE (08:34)
[2020-12-19] MEDS ORDERED: Propofol 200 MG/20 ML SDV ONE (08:35)
[2020-12-19] MEDS ORDERED: fentaNYL 100 MCG/2 ML SDV ONE ×2 (08:35→11:04)
[2020-12-19] MEDS ORDERED: Bupivacaine 0.5% 10 ML SDV ONE (09:26)
[2020-12-19] MEDS ORDERED: Midazolam 1 MG/ML 2 ML SDV ONE (09:28)
--- NOTE | 2020-12-19 09:56 | PCM.PREANE ---
Preanesthetic Assessment - Anesthesia/Transfusion/Family Hx Anesthesia History: Prior Anesthesia Without Reaction Other Type of Anesthesia Reaction Comment: remembers scope removal during previous EGD Family History of Anesthesia Reaction: No Transfusion History: No Prior Transfusion(s) - Review of Systems General: No Symptoms Pulmonary: No Symptoms Cardiovascular: No Symptoms Gastrointestinal: No Symptoms Neurological: No Symptoms Other: Reports: None - Physical Assessment NPO Status Date: 12/18/20 NPO Status Time: 23:00 Vital Signs: Last Vital Signs Temp 36.3 C 12/19/20 08:15 Pulse 81 12/19/20 08:15 Resp 15 12/19/20 08:15 BP 139/88 12/19/20 08:15 Pulse Ox 97 12/19/20 08:15 Height: 5 ft 11 in Weight: 138.346 kg ASA Class: 2 Mental Status: Alert & Oriented x3 Dentition: Reports: Normal Dentition ROM/Head Extension: Full Lungs: Clear to Auscultation, Normal Respiratory Effort Cardiovascular: Regular Rate, Regular Rhythm - Allergies Allergies/Adverse Reactions: Allergies Allergy/AdvReac Type Severity Reaction Status Date / Time acetaminophen Allergy Vomiting Verified 12/13/20 08:39 [From Tylenol-Codeine #3] codeine Allergy Vomiting Verified 12/13/20 08:39 [From Tylenol-Codeine #3] - Acknowledgements Anesthesia Type Planned: General Anesthesia Pt an Appropriate Candidate for the Planned Anesthesia: Yes Alternatives and Risks of Anesthesia Discussed w Pt/Guardian: Yes Pt/Guardian Understands and Agrees with Anesthesia Plan: Yes PreAnesthesia Questionnaire - Past Health History Medical/Surgical History: Denies Medical/Surgical History HEENT History: Reports: Allergic Rhinitis, Other (See Below) Other HEENT History: wears glasses Cardiovascular History: Reports: Hypertension Respiratory History: Reports: Sleep Apnea Other Respiratory History: uses CPAP Gastrointestinal History: Reports: Gastritis, GERD, Helicobacter Pylori, PUD Other Gastrointestinal History: hx of Barretts Esophagus Genitourinary History: Reports: Renal Calculus Musculoskeletal History: Reports: Fracture Other Musculoskeletal History: hx of fx thumb and pinky finger, hx right orbital fx, right boxer fx Neurological History: Reports: Neuropathy, Peripheral, Other (See Below) Other Neuro History: hx of lumbar degenerative disc disease Psychiatric History: Reports: None Endocrine/Metabolic History: Reports: Obesity/BMI 30+ Hematologic History: Reports: None Immunologic History: Reports: None Oncologic (Cancer) History: Reports: None Dermatologic History: Reports: None - Past Surgical History Head Surgeries/Procedures: Reports: None HEENT Surgical History: Reports: Other (See Below) Other HEENT Surgeries/Procedures: hx of ORIF to repair right orbital floor fx (has plastic plates) Cardiovascular Surgical History: Reports: None Respiratory Surgical History: Reports: None GI Surgical History: Reports: Colonoscopy, EGD, Hernia, Inguinal Male Surgical History: Reports: None Endocrine Surgical History: Reports: None Neurological Surgical History: Reports: None Musculoskeletal Surgical History: Reports: ORIF Other Musculoskeletal Surgeries/Procedures:: right orbital fx Oncologic Surgical History: Reports: None Dermatological Surgical History: Reports: None - SUBSTANCE USE Tobacco Use Status *Q: Former Tobacco User Tobacco Use Within Last Twelve Months: No - HOME MEDS Home Medications: Home Meds Pantoprazole Sodium [Protonix] 40 mg PO QAM 09/08/16 [History] Cholecalciferol (Vitamin D3) [Vitamin D3] 2,000 unit PO DAILY 02/06/18 [History] Fish Oil/[place]-3 Fatty Acids [Fish Oil 1,000 MG] 2 tab PO DAILY 02/06/18 [History] Losartan Potassium 25 mg PO QAM 02/06/18 [History] hydroCHLOROthiazide [Hydrochlorothiazide] 25 mg PO DAILY 11/14/20 [History] - CURRENT (IN HOUSE) MEDS Current Meds: Current Medications Albuterol (Albuterol 0.083% 2.5 Mg/3 Ml Neb Soln) 2.5 mg NEB ONETIME PRN PRN Reason: Wheezing Droperidol (Droperidol 5 Mg/2 Ml Sdv) 0.625 mg IVPUSH ONETIME PRN PRN Reason: Nausea/Vomiting Fentanyl (Fentanyl 100 Mcg/2 Ml Sdv) 50 mcg IVPUSH Q5M PRN PRN Reason: Pain (mild 1-3) Hydromorphone HCl (Hydromorphone 1 Mg/Ml Syringe) 1 mg IVPUSH Q10M PRN PRN Reason: Pain (moderate 4-6) Lactated Ringer's (Ringers, Lactated) 1,000 mls @ 125 mls/hr IV ASDIRECTED FIONA Metoclopramide HCl (Metoclopramide 10 Mg/2 Ml Sdv) 10 mg IVPUSH ONETIME PRN PRN Reason: Nausea/Vomiting Morphine Sulfate (Morphine 2 Mg/Ml Syringe) 2 mg IVPUSH Q10M PRN PRN Reason: Pain (severe 7-10) Naloxone HCl (Naloxone 0.4 Mg/Ml Syringe) 0.1 mg IVPUSH ASDIRECTED PRN PRN Reason: Respiratory Depression Ondansetron HCl (Ondansetron 4 Mg/2 Ml Sdv) 4 mg IVPUSH ONETIME PRN PRN Reason: Nausea/Vomiting Discontinued Medications Bupivacaine HCl (Bupivacaine 0.5% 10 Ml Sdv) Confirm Administered Dose 30 ml .ROUTE .STK-MED ONE Stop: 12/19/20 09:27 Fentanyl (Fentanyl 100 Mcg/2 Ml Sdv) Confirm Administered Dose 100 mcg .ROUTE .STK-MED ONE Stop: 12/19/20 08:36 Cefoxitin Sodium 2 gm/ Premix 50 mls @ 100 mls/hr IV ONETIME ONE Stop: 12/19/20 07:29 Lidocaine HCl (Lidocaine 2% 100 Mg/5 Ml Syringe) Confirm Administered Dose 100 mg .ROUTE .STK-MED ONE Stop: 12/19/20 08:35 Lidocaine HCl (Lidocaine 1% 5 Ml Sdv) Confirm Administered Dose 5 ml .ROUTE .STK-MED ONE Stop: 12/19/20 08:36 Midazolam HCl (Midazolam 1 Mg/Ml 2 Ml Sdv) Confirm Administered Dose 2 mg .ROUTE .STK-MED ONE Stop: 12/19/20 09:29 Propofol (Propofol 200 Mg/20 Ml Sdv) Confirm Administered Dose 200 mg .ROUTE .STK-MED ONE Stop: 12/19/20 08:36 Rocuronium [place] (Rocuronium [place] 50 Mg/5 Ml Syringe) Confirm Administered Dose 50 mg .ROUTE .STK-MED ONE Stop: 12/19/20 08:35
[2020-12-19] MEDS ORDERED: cefOXitin 100 ML ONE (10:30)
[2020-12-19] MEDS ORDERED: Ketorolac 30 MG/ML SDV ONE (10:58)
[2020-12-19] MEDS ORDERED: Sugammadex Sodium 200 MG/2 ML VIAL ONE (10:58)
[2020-12-19] MEDS ORDERED: Ondansetron 4 MG/2 ML SDV ONE (10:58)
[2020-12-19] MEDS ORDERED: Acetaminophen/HYDROcodone 325-5 MG Tab PO PRN (12:17)
[2020-12-19] MEDS ORDERED: traMADol 50 MG Tab PO PRN (12:17)
[2020-12-19] MEDS ORDERED: Morphine 2 MG/ML SYRINGE IVPUSH PRN (12:25)
[2020-12-19] MEDS ORDERED: Lactated Ringers 1,000 ML IV SCH (12:30)
--- NOTE | 2020-12-19 12:32 | PCM.POSTAN ---
POST ANESTHESIA ASSESSMENT - MENTAL STATUS Mental Status: Alert, Oriented - VITAL SIGNS Vital Signs: Last Vital Signs Temp 36.9 C 12/19/20 12:11 Pulse 77 12/19/20 12:21 Resp 20 12/19/20 12:21 BP 109/61 12/19/20 12:21 Pulse Ox 92 L 12/19/20 12:21 - RESPIRATORY Respiratory Status: Respiratory Rate WNL, Airway Patent, O2 Saturation Stable - CARDIOVASCULAR CV Status: Pulse Rate WNL, Blood Pressure Stable - GASTROINTESTINAL GI Status: No Symptoms - PAIN Pain Score: 0 - POST OP HYDRATION Hydration Status: Adequate & Stable
--- NOTE | 2020-12-19 12:33 | PCM48HPAN ---
Post Anesthesia Note - EVALUATION WITHIN 48HRS OF ANESTHETIC Vital Signs in Normal Range: Yes Patient Participated in Evaluation: Yes Respiratory Function Stable: Yes Airway Patent: Yes Cardiovascular Function Stable: Yes Hydration Status Stable: Yes Pain Control Satisfactory: Yes Nausea and Vomiting Control Satisfactory: Yes Mental Status Recovered: Yes Vital Signs: Last Vital Signs Temp 36.9 C 12/19/20 12:11 Pulse 75 12/19/20 12:31 Resp 17 12/19/20 12:31 BP 105/62 12/19/20 12:31 Pulse Ox 95 12/19/20 12:31
--- NOTE | 2020-12-19 12:35 | PCM.OPNOTE ---
- General Post-Op/Procedure Note Date of Surgery/Procedure: 12/19/20 Operative Procedure(s): Laparoscopic cholecystectomy Pre Op Diagnosis: Abnormal hepatobiliary scan. Chronic RUQ pain. Post-Op Diagnosis: Chronic cholecystitis Anesthesia Technique: General ET Tube (ASA II) Primary Surgeon: Tera Blood Fluid Replacement, Intraop: 1,200 Output, Urine Amount: 250 EBL in mLs: 20 Condition: Good Free Text/Narrative:: DICTATION [id number] CPT CODE [id number]
--- NOTE | 2020-12-19 14:20 | OR ---
SURGEON: Tera Blood M.D. DATE OF PROCEDURE: 12/19/2020 OPERATION PERFORMED: Laparoscopic cholecystectomy. PRIMARY SURGEON: Tera Blood M.D. ANESTHESIA: General endotracheal. ASA CLASSIFICATION: II. PREOPERATIVE DIAGNOSIS: Chronic right upper quadrant pain, abnormal hepatobiliary scan. POSTOPERATIVE DIAGNOSIS: Chronic right upper quadrant pain, abnormal hepatobiliary scan. ESTIMATED BLOOD LOSS: 20 mL. INTRAOPERATIVE FLUID REPLACEMENT: 1200 mL of crystalloid. INTRAOPERATIVE URINARY OUTPUT: 250 mL. INTRAOPERATIVE OROGASTRIC OUTPUT: 100 mL. DESCRIPTION OF PROCEDURE: The patient was taken to the operating room and placed on the operating table in the supine position. Time-out was called for appropriate identification of the patient and procedure. Thigh-high TEDs and sequential compression boots were placed. Following satisfactory attainment of general endotracheal anesthesia, a De Souza catheter was placed in the patient's urinary bladder. The abdomen was then prepped with DuraPrep solution. Sterile drapes were applied. The skin just above the umbilicus was infiltrated with 0.5% Marcaine solution. Skin incision was made and deepened through the subcutaneous tissue obtaining hemostasis with the use of electrocautery. The Veress needle was introduced into the peritoneal cavity. The saline drop test was positive. Carbon dioxide pneumoperitoneum was established with the release set at 15 cm of water. Once a satisfactory pneumoperitoneum was established, 5 mm camera and port were placed through the supraumbilical incision. The patient was now positioned with his feet down and rolled to the left. Under camera vision, 12 mm subxiphoid, 5 mm midclavicular, and 5 mm anterior axillary ports were placed. Each incision had preemptively been infiltrated with 0.5% Marcaine solution. The patient had numerous adhesions to the gallbladder. The Harmonic Scalpel was used to take down all of those adhesions to identify the cystic duct. Again, with multiple adhesions, it was elected to give the patient a dose of indocyanine green to help delineate the cystic duct. Dissection was carried out in the cholecystohepatic triangle, and with the use of the indocyanine green, we were able to safely identify the cystic duct, which was not particularly enlarged. This was clipped and divided between the hemoclips. Cystic artery was identified in a similar fashion and doubly clipped proximally with a single clip on the gallbladder side. Using electrocautery, the gallbladder was dissected away from its bed. Once the gallbladder was amputated, it was promptly placed in an EndoCatch pouch and maintained there. The right upper quadrant was inspected for hemostasis. There was a little bit of oozing from the gallbladder bed. The gallbladder bed was irrigated and no bile leak was noted. Surgicel was placed into the bed of the gallbladder. All fluid was aspirated. The right hemidiaphragm was then irrigated with 250 mL of saline with 20 mL of 0.5% Marcaine. That fluid was left in place. Under camera vision, the EndoCatch containing gallbladder and 12 mm port were removed. Again, under camera vision, the 5 mm midclavicular and anterior axillary ports were removed after evacuating the CO2 from the abdominal cavity. Finally, the supraumbilical camera and port were removed. Wounds were inspected for hemostasis and small bleeding sites were electrocoagulated. The supraumbilical and subxiphoid incisions were closed in 2 layers approximating the subcutaneous tissue with 3-0 Vicryl and the skin with subcuticular 4-0 Monocryl. The anterior axillary and midclavicular incisions were closed with subcuticular 4-0 Monocryl. All incisions were Steri- Stripped and dressed with sterile Tegaderm pads. Sponge, needle, and instrument counts were all correct. De Souza catheter was removed prior to emergence from anesthesia. Following emergence from anesthesia and extubation, the patient was taken to recovery room in stable condition. LEONCIO CARLOS /[id number]
[2020-12-19 16:03] VITALS: BP 108/68; PULSE 73
== END 2020-12-19 15:48 | disposition home or self-care (01) ==
LOC: MW.SDS 08:10
PROVIDERS: ATTEND Surgery
DX: K81.1 Chronic cholecystitis (principal); G92.9 Unspecified toxic encephalopathy; K29.50 Unspecified chronic gastritis without bleeding; K21.9 Gastro-esophageal reflux disease without esophagitis; K42.9 Umbilical hernia without obstruction or gangrene; Z88.8 Allergy status to other drugs, medicaments and biological substances; Z79.899 Other long term (current) drug therapy; Z88.5 Allergy status to narcotic agent; Z87.891 Personal history of nicotine dependence
CPT/HCPCS: 47562; 88304; J0694; J1885; J2250; J2405; J2704; J3010; J3490; J7030; J7120; 00790

== ENCOUNTER 2021-07-11 11:53 | Emergency (ER) | payer BC, OTHER ==
[2021-07-11] MEDS ORDERED: Sodium Chloride 0.9% 1,000 ML IV ONE (12:14)
[2021-07-11] MEDS ORDERED: Ondansetron 4 MG/2 ML SDV IVPUSH ONE (12:14)
[2021-07-11] MEDS ORDERED: Ketorolac 30 MG/ML SDV IVPUSH ONE (12:15)
[2021-07-11 13:16] LABS: BLOOD UREA NITROGEN,BUN 11 mg/dL (7.0-18.0); CARBON DIOXIDE,CO2 26.9 mmol/L (21.0-32.0); CHLORIDE,CL 97 mmol/L (98-107); GLUCOSE RANDOM 176 mg/dL (74-106); POTASSIUM,K 3.1 mmol/L (3.5-5.1); SODIUM,NA 134 mmol/L (136-148)
[2021-07-11] MEDS ORDERED: Tamsulosin 0.4 MG Cap.ER PO ONE (13:50)
[2021-07-11 15:24] VITALS: BP 136/95; PULSE 71
== END 2021-07-11 15:24 | disposition home or self-care (01) ==
LOC: MW.ED 11:53
DX: N20.0 Calculus of kidney (principal); K21.9 Gastro-esophageal reflux disease without esophagitis; I10 Essential (primary) hypertension; E66.9 Obesity, unspecified; Z68.30 Body mass index [BMI] 30.0-30.9, adult; Z79.899 Other long term (current) drug therapy; Z88.5 Allergy status to narcotic agent; Z88.6 Allergy status to analgesic agent
CPT/HCPCS: 36415; 74176; 80053; 81001; 85025; 96374; 96375; 99284; J1885; J2405; J7030

== ENCOUNTER 2021-12-04 09:34 | Emergency (ER) | payer OTHER, BC ==
[2021-12-04] MEDS ORDERED: LORazepam 2 MG/ML SDV IVPUSH ONE (10:19)
[2021-12-04] MEDS ORDERED: Sodium Chloride 0.9% 1,000 ML IV ONE ×2 (10:19→11:39)
[2021-12-04 10:45] LABS: CARBON DIOXIDE,CO2 23.7 mmol/L (21.0-32.0); POTASSIUM,K 2.7 mmol/L (3.5-5.1)
[2021-12-04] MEDS ORDERED: Potassium Chloride 10% 20 MEQ/15 ML Soln 30 ML UD Cup PO ONE (11:07)
[2021-12-04] MEDS ORDERED: Potassium Chloride 20 MEQ in Premix Bag 1 BAG IV ONE (11:30)
[2021-12-04] MEDS ORDERED: Iopamidol 755 MG/ML 500 ML Multipack Bottle IVPUSH ONE (12:02)
[2021-12-04] MEDS ORDERED: Magnesium Sulfate/Water 2 GM in Premix Bag 1 BAG IV ONE (12:43)
[2021-12-04 14:23] VITALS: BP 141/91; PULSE 87
== END 2021-12-04 14:21 | disposition home or self-care (01) ==
LOC: MW.ED 09:34
DX: R07.89 Other chest pain (principal); E87.6 Hypokalemia; I10 Essential (primary) hypertension; E66.9 Obesity, unspecified; Z68.39 Body mass index [BMI] 39.0-39.9, adult; Z88.6 Allergy status to analgesic agent; Z88.5 Allergy status to narcotic agent; Z79.899 Other long term (current) drug therapy; Z20.822 Contact with and (suspected) exposure to COVID-19
CPT/HCPCS: 36415; 71045; 71275; 80053; 83735; 83880; 84484; 85025; 85379; 87635; 96361; 96365; 96366; 96368; 96375; 99284; A9270; J2060; J3475; J3480; J7030; Q9967; 93010; 99285; U0002

== ENCOUNTER 2021-12-27 09:10 | Emergency (ER) | payer OTHER, BC ==
[2021-12-27 09:35] VITALS: BP 128/78; PULSE 79
[2021-12-27 10:38] LABS: CORONAVIRUS COVID-19 NAA NEGATIVE (NEGATIVE); INFLUENZA A NAA NEGATIVE (NEGATIVE); INFLUENZA B NAA NEGATIVE (NEGATIVE)
== END 2021-12-27 10:56 | disposition home or self-care (01) ==
LOC: MW.ED 09:10
DX: K29.70 Gastritis, unspecified, without bleeding (principal); J32.9 Chronic sinusitis, unspecified; I10 Essential (primary) hypertension; E66.9 Obesity, unspecified; Z68.41 Body mass index [BMI] 40.0-44.9, adult; Z88.8 Allergy status to other drugs, medicaments and biological substances; Z88.5 Allergy status to narcotic agent; Z20.822 Contact with and (suspected) exposure to COVID-19
CPT/HCPCS: 0240U; 99284

== ENCOUNTER 2022-05-31 11:56 | Emergency (ER) | payer OTHER, BC ==
[2022-05-31] MEDS ORDERED: Sodium Chloride 0.9% 10 ML Syringe FLUSH PRN (12:32)
[2022-05-31] MEDS ORDERED: Sodium Chloride 0.9% 2.5 ML Syringe FLUSH PRN (12:32)
[2022-05-31 13:13] LABS: CARBON DIOXIDE,CO2 27.5 mmol/L (21.0-32.0); POTASSIUM,K 3.3 mmol/L (3.5-5.1)
[2022-05-31] MEDS ORDERED: Iopamidol 755 MG/ML 500 ML Multipack Bottle IVPUSH ONE (13:55)
[2022-05-31 15:30] VITALS: BP 125/85; PULSE 64
== END 2022-05-31 15:44 | disposition home or self-care (01) ==
LOC: MW.ED 11:56
DX: K40.90 Unilateral inguinal hernia, without obstruction or gangrene, not specified as recurrent (principal); K42.9 Umbilical hernia without obstruction or gangrene; I10 Essential (primary) hypertension; K21.9 Gastro-esophageal reflux disease without esophagitis; E66.9 Obesity, unspecified; Z88.5 Allergy status to narcotic agent; Z79.899 Other long term (current) drug therapy; Z98.890 Other specified postprocedural states; Z68.39 Body mass index [BMI] 39.0-39.9, adult
CPT/HCPCS: 36415; 74177; 80053; 85025; 99284; J3490; Q9967

== ENCOUNTER 2022-10-03 22:37 | Emergency (ER) | payer OTHER, BC ==
[2022-10-03] MEDS ORDERED: Ondansetron 4 MG/2 ML SDV IVPUSH ONE (22:40)
[2022-10-03] MEDS ORDERED: Sodium Chloride 0.9% 1,000 ML IV ONE (22:40)
[2022-10-03] MEDS ORDERED: Sodium Chloride 0.9% 2.5 ML Syringe FLUSH PRN (22:40)
[2022-10-03] MEDS ORDERED: Sodium Chloride 0.9% 10 ML Syringe FLUSH PRN (22:40)
[2022-10-03 22:54] LABS: GLUCOSE,URINE NEGATIVE (NEGATIVE); KETONES,URINE TRACE mg/dL (NEGATIVE); LEUKOCYTE ESTERASE,URINE MODERATE (NEGATIVE); NITRITE,URINE POSITIVE (NEGATIVE); OCCULT BLOOD,URINE LARGE (NEGATIVE); PH,URINE 6.5 (5.0-8.0); PROTEIN,URINE 100 mg/dL (NEGATIVE)
[2022-10-03] MEDS ORDERED: Naloxone 0.4 MG/ML SDV IVPUSH PRN (22:54)
[2022-10-03] MEDS ORDERED: Morphine 2 MG/ML SYRINGE IVPUSH ONE (22:54)
[2022-10-03 23:00] LABS: APPEARANCE,URINE CLOUDY; BILIRUBIN,URINE SMALL (NEGATIVE)
[2022-10-03 23:01] LABS: COLOR,URINE AMBER
[2022-10-03 23:05] LABS: BASOPHILS PERCENT AUTO 0.2 % (0.0-1.5); EOSINOPHILS ABSOLUTE AUTO 0.1 K/uL (0.0-0.7); EOSINOPHILS PERCENT AUTO 1.7 % (0.0-7.0); HEMATOCRIT 44.2 % (38.0-50.0); HEMOGLOBIN 15.7 g/dL (13.0-17.0); LYMPHOCYTES ABSOLUTE AUTO 2.2 K/uL (0.6-2.4); LYMPHOCYTES PERCENT AUTO 34.5 % (16.0-40.0); MEAN CORPUSCULAR HGB CONC 35.5 g/dL (31.0-37.0); MONOCYTES ABSOLUTE AUTO 0.6 K/uL (0.0-0.8); NEUTROPHILS ABSOLUTE AUTO 3.5 K/uL (1.4-5.7); NEUTROPHILS PERCENT AUTO 54.6 % (48.0-80.0); NRBC ABSOLUTE 0 K/uL; PLATELET COUNT,PLT 166 K/uL (150-400); RED BLOOD CELL COUNT 4.91 M/uL (4.50-5.90); WHITE BLOOD CELL COUNT,WBC 6.35 K/uL (4.0-11.0)
[2022-10-03 23:10] LABS: BACTERIA,URINE FEW (NEGATIVE); EPITHELIAL CELLS,URINE RARE (NONE-FEW); RBC,URINE TOO NUMEROUS TO CT (0-2/HPF)
[2022-10-03] MEDS ORDERED: cefTRIAXone 2 GM in Sodium Chloride 0.9% 50 ML IV ONE (23:13)
[2022-10-03] MEDS ORDERED: Morphine 4 MG/ML Syringe IVPUSH ONE (23:15)
[2022-10-03 23:30] LABS: A/G RATIO 1.1 (0.9-1.6); ALBUMIN 3.7 g/dL (3.4-5.0); BILIRUBIN TOTAL 0.6 mg/dL (0.2-1.0); CALCIUM 8.5 mg/dL (8.5-10.1); CREATININE 1.3 mg/dL (0.8-1.3); EST CRCL DRUG DOSING (CG) 74.82 mL/min; POTASSIUM,K 3.6 mmol/L (3.5-5.1)
[2022-10-03] MEDS ORDERED: Ketorolac 30 MG/ML SDV IVPUSH ONE (23:37)
[2022-10-03] MEDS ORDERED: Iopamidol 755 MG/ML 500 ML Multipack Bottle IVPUSH ONE (23:45)
[2022-10-04] MEDS ORDERED: Morphine 4 MG/ML Syringe IVPUSH ONE (01:49)
[2022-10-04] MEDS ORDERED: Ondansetron 4 MG/2 ML SDV IVPUSH ONE (01:49)
[2022-10-04 02:39] VITALS: PULSE 62
[2022-10-04 03:37] VITALS: BP 126/74
== END 2022-10-04 04:10 ==
LOC: MW.ED 22:37
DX: N39.0 Urinary tract infection, site not specified (principal); N13.2 Hydronephrosis with renal and ureteral calculous obstruction; K21.9 Gastro-esophageal reflux disease without esophagitis; I10 Essential (primary) hypertension; E66.9 Obesity, unspecified; Z79.899 Other long term (current) drug therapy; Z88.5 Allergy status to narcotic agent; Z88.8 Allergy status to other drugs, medicaments and biological substances
CPT/HCPCS: 36415; 74177; 80053; 81001; 83690; 85025; 96361; 96365; 96375; 96376; 99285; J0696; J1885; J2270; J2405; J3490; J7030; Q9967

== ENCOUNTER 2022-10-09 08:52 | Emergency (ER) | payer OTHER, BC ==
[2022-10-09] MEDS ORDERED: Sodium Chloride 0.9% 2.5 ML Syringe FLUSH PRN (09:23)
[2022-10-09] MEDS ORDERED: Ketorolac 30 MG/ML SDV IVPUSH ONE (09:23)
[2022-10-09] MEDS ORDERED: Sodium Chloride 0.9% 10 ML Syringe FLUSH PRN (09:23)
[2022-10-09] MEDS ORDERED: fentaNYL 50 MCG/ML SDV IVPUSH ONE (09:23)
[2022-10-09] MEDS ORDERED: Sodium Chloride 0.9% 1,000 ML IV ONE (09:23)
[2022-10-09 09:48] LABS: HEMATOCRIT 40.6 % (38.0-50.0); HEMOGLOBIN 14.2 g/dL (13.0-17.0); MEAN CORPUSCULAR HEMOGLOBIN 31.1 pg (27.0-32.0); NRBC ABSOLUTE 0 K/uL; PLATELET COUNT,PLT 152 K/uL (150-400); RED BLOOD CELL COUNT 4.56 M/uL (4.50-5.90); WHITE BLOOD CELL COUNT,WBC 6.51 K/uL (4.0-11.0)
[2022-10-09 10:16] LABS: A/G RATIO 0.9 (0.9-1.6); ALBUMIN 3.2 g/dL (3.4-5.0); BILIRUBIN TOTAL 0.7 mg/dL (0.2-1.0); CALCIUM 8.8 mg/dL (8.5-10.1); CREATININE 1.3 mg/dL (0.8-1.3); EST CRCL DRUG DOSING (CG) 74.82 mL/min; POTASSIUM,K 3.6 mmol/L (3.5-5.1); PROTEIN TOTAL,TP 6.9 g/dL (6.4-8.2)
[2022-10-09 10:17] LABS: BAND ABSOLUTE MAN 0.1; BAND PERCENT MAN 2 %; BASOPHILS ABSOLUTE MAN 0.1 (0.0-0.1); BASOPHILS PERCENT MAN 1 % (0.0-1.5); EOSINOPHILS ABSOLUTE MAN 0.1 (0.0-0.7); EOSINOPHILS PERCENT MAN 1 % (0.0-7.0); LYMPHOCYTES PERCENT MAN 15 % (16.0-40.0); MONOCYTES ABSOLUTE MAN 0.5 (0.0-0.8); MONOCYTES PERCENT MAN 7 % (0.0-15.0); SEG NEUTROPHILS ABSOLUTE MAN 4.8 (1.4-5.7); SEG NEUTROPHILS PERCENT MAN 74 % (48.0-80.0)
[2022-10-09 11:18] LABS: APPEARANCE,URINE CLEAR; BILIRUBIN,URINE NEGATIVE (NEGATIVE); COLOR,URINE YELLOW; GLUCOSE,URINE NEGATIVE (NEGATIVE); KETONES,URINE NEGATIVE (NEGATIVE); LEUKOCYTE ESTERASE,URINE TRACE (NEGATIVE); NITRITE,URINE NEGATIVE (NEGATIVE); OCCULT BLOOD,URINE SMALL (NEGATIVE); PROTEIN,URINE NEGATIVE (NEGATIVE); UROBILINOGEN,URINE 0.2 EU/dL (<2.0)
[2022-10-09 11:33] LABS: WBC,URINE 0-5 (0-5/HPF)
[2022-10-09 11:34] LABS: BACTERIA,URINE NOT SEEN (NEGATIVE); EPITHELIAL CELLS,URINE NOT SEEN (NONE-FEW)
[2022-10-09] MEDS ORDERED: fentaNYL 100 MCG/2 ML SDV IVPUSH ONE (12:02)
[2022-10-09 12:46] VITALS: BP 131/84; PULSE 67
[2022-10-09] MEDS ORDERED: HYDROmorphone 1 MG/ML Syringe IVPUSH ONE (13:00)
== END 2022-10-09 13:39 ==
LOC: MW.ED 08:52
DX: N13.2 Hydronephrosis with renal and ureteral calculous obstruction (principal); I10 Essential (primary) hypertension; K21.9 Gastro-esophageal reflux disease without esophagitis; E66.9 Obesity, unspecified; Z68.39 Body mass index [BMI] 39.0-39.9, adult; Z88.5 Allergy status to narcotic agent; Z79.899 Other long term (current) drug therapy
CPT/HCPCS: 36415; 74176; 80053; 81001; 85025; 87040; 96361; 96374; 96375; 96376; 99285; J1170; J1885; J3010; J3490; J7030

== ENCOUNTER 2022-10-12 22:58 | Emergency (ER) | payer OTHER, BC ==
[2022-10-13] MEDS ORDERED: Sodium Chloride 0.9% 1,000 ML IV ONE (00:29)
[2022-10-13] MEDS ORDERED: Sodium Chloride 0.9% 2.5 ML Syringe FLUSH PRN (00:29)
[2022-10-13] MEDS ORDERED: Sodium Chloride 0.9% 10 ML Syringe FLUSH PRN (00:29)
[2022-10-13] MEDS ORDERED: Levofloxacin/Dextrose 5%-Water 750 MG in Premix Bag 1 BAG IV ONE (00:31)
[2022-10-13] MEDS ORDERED: Ketorolac 30 MG/ML SDV IVPUSH ONE (00:43)
[2022-10-13] MEDS ORDERED: Acetaminophen 325 MG Tab PO ONE (00:43)
[2022-10-13 00:55] LABS: BASOPHILS PERCENT AUTO 0.1 % (0.0-1.5); EOSINOPHILS PERCENT AUTO 0.4 % (0.0-7.0); HEMATOCRIT 40.4 % (38.0-50.0); HEMOGLOBIN 14.5 g/dL (13.0-17.0); LYMPHOCYTES ABSOLUTE AUTO 1.1 K/uL (0.6-2.4); LYMPHOCYTES PERCENT AUTO 15.2 % (16.0-40.0); MEAN CORPUSCULAR HEMOGLOBIN 32.2 pg (27.0-32.0); MEAN CORPUSCULAR HGB CONC 35.9 g/dL (31.0-37.0); MEAN CORPUSCULAR VOLUME 89.8 fL (80.0-98.0); MONOCYTES ABSOLUTE AUTO 0.7 K/uL (0.0-0.8); MONOCYTES PERCENT AUTO 9.7 % (0.0-15.0); NEUTROPHILS ABSOLUTE AUTO 5.4 K/uL (1.4-5.7); NEUTROPHILS PERCENT AUTO 74.6 % (48.0-80.0); PLATELET COUNT,PLT 186 K/uL (150-400); WHITE BLOOD CELL COUNT,WBC 7.22 K/uL (4.0-11.0)
[2022-10-13] MEDS ORDERED: Iopamidol 755 MG/ML 500 ML Multipack Bottle IVPUSH ONE (01:00)
[2022-10-13 01:17] LABS: A/G RATIO 0.9 (0.9-1.6); ALBUMIN 3.2 g/dL (3.4-5.0); BILIRUBIN TOTAL 0.8 mg/dL (0.2-1.0); CARBON DIOXIDE,CO2 28.2 mmol/L (21.0-32.0); CREATININE 1.4 mg/dL (0.8-1.3); EST CRCL DRUG DOSING (CG) 69.47 mL/min; POTASSIUM,K 3.2 mmol/L (3.5-5.1); PROTEIN TOTAL,TP 6.8 g/dL (6.4-8.2)
[2022-10-13 01:20] LABS: LACTIC ACID 1.3 mmol/L (0.4-2.0)
[2022-10-13 01:41] LABS: BILIRUBIN,URINE NEGATIVE (NEGATIVE); COLOR,URINE YELLOW; GLUCOSE,URINE NEGATIVE (NEGATIVE); KETONES,URINE NEGATIVE (NEGATIVE); LEUKOCYTE ESTERASE,URINE SMALL (NEGATIVE); NITRITE,URINE NEGATIVE (NEGATIVE); OCCULT BLOOD,URINE LARGE (NEGATIVE); PH,URINE 6.5 (5.0-8.0); PROTEIN,URINE 100 mg/dL (NEGATIVE)
[2022-10-13 01:49] LABS: APPEARANCE,URINE CLOUDY; BACTERIA,URINE FEW (NEGATIVE); EPITHELIAL CELLS,URINE OCCASIONAL (NONE-FEW); RBC,URINE TOO NUMEROUS TO CT (0-2/HPF)
[2022-10-13 02:46] LABS: CORONAVIRUS COVID-19 NAA NEGATIVE (NEGATIVE); INFLUENZA A NAA NEGATIVE (NEGATIVE); INFLUENZA B NAA NEGATIVE (NEGATIVE); RESPIRATORY SYNCYTIAL VIR NAA NEGATIVE (NEGATIVE)
[2022-10-13 03:04] VITALS: BP 131/80; PULSE 78
[2022-10-13] MEDS ORDERED: Ibuprofen 600 MG Tab PO ONE (03:06)
== END 2022-10-13 03:15 | disposition home or self-care (01) ==
LOC: MW.ED 22:58
DX: B34.9 Viral infection, unspecified (principal); I10 Essential (primary) hypertension; K21.9 Gastro-esophageal reflux disease without esophagitis; E66.9 Obesity, unspecified; Z68.38 Body mass index [BMI] 38.0-38.9, adult; Z88.1 Allergy status to other antibiotic agents; Z88.8 Allergy status to other drugs, medicaments and biological substances; Z88.5 Allergy status to narcotic agent; Z79.899 Other long term (current) drug therapy; Z20.822 Contact with and (suspected) exposure to COVID-19; Z96.0 Presence of urogenital implants; Z87.442 Personal history of urinary calculi
CPT/HCPCS: 0241U; 36415; 71046; 74177; 80053; 81001; 83605; 85025; 87040; 87086; 96365; 96375; 99284; A9270; J1885; J1956; J3490; J7030; Q9967

== ENCOUNTER 2022-10-18 13:52 | Emergency (ER) | payer BC, OTHER | END 2022-10-18 14:55 | disposition left against medical advice (07) | LOC: MW.ED 13:52 | DX: Z53.21 Procedure and treatment not carried out due to patient leaving prior to being seen by health care provider (principal) ==

== ENCOUNTER 2023-02-26 09:47 | Emergency (ER) | payer OTHER, BC ==
[2023-02-26] MEDS ORDERED: Sodium Chloride 0.9% 1,000 ML IV ONE (11:09)
[2023-02-26] MEDS ORDERED: Ketorolac 30 MG/ML SDV IVPUSH ONE (11:09)
[2023-02-26 11:25] LABS: APPEARANCE,URINE SLT CLOUDY; BILIRUBIN,URINE NEGATIVE (NEGATIVE); COLOR,URINE YELLOW; GLUCOSE,URINE NEGATIVE (NEGATIVE); KETONES,URINE NEGATIVE (NEGATIVE); LEUKOCYTE ESTERASE,URINE MODERATE (NEGATIVE); NITRITE,URINE NEGATIVE (NEGATIVE); OCCULT BLOOD,URINE MODERATE (NEGATIVE); PROTEIN,URINE NEGATIVE (NEGATIVE); UROBILINOGEN,URINE 0.2 EU/dL (<2.0)
[2023-02-26 11:36] LABS: BASOPHILS ABSOLUTE AUTO 0.02 K/uL (0.00-0.20); BASOPHILS PERCENT AUTO 0.3 % (0.0-1.0); EOSINOPHILS ABSOLUTE AUTO 0.09 K/uL (0.00-0.45); EOSINOPHILS PERCENT AUTO 1.3 % (0.0-6.0); HEMATOCRIT 39.6 % (42.0-52.0); HEMOGLOBIN 14.3 g/dL (14.0-18.0); IMMATURE GRAN ABSOLUTE AUTO 0.02 K/uL (0.00-0.05); IMMATURE GRAN PERCENT AUTO 0.3 % (0.0-0.4); LYMPHOCYTES ABSOLUTE AUTO 1.57 K/uL (1.00-4.80); LYMPHOCYTES PERCENT AUTO 22.3 % (24.0-44.0); MEAN CORPUSCULAR HEMOGLOBIN 31.7 pg (28.0-32.0); MEAN CORPUSCULAR HGB CONC 36.1 g/dL (32.0-36.0); MEAN CORPUSCULAR VOLUME 87.8 fL (83.0-99.0); MEAN PLATELET VOLUME 9.8 fL (9.4-12.4); MONOCYTES ABSOLUTE AUTO 0.59 K/uL (0.00-0.80); MONOCYTES PERCENT AUTO 8.4 % (0.0-8.0); NEUTROPHILS ABSOLUTE AUTO 4.75 K/uL (1.80-7.70); NEUTROPHILS PERCENT AUTO 67.4 % (41.0-71.0); PLATELET COUNT,PLT 191 K/uL (150-400); RED BLOOD CELL COUNT 4.51 M/uL (4.52-5.90); WHITE BLOOD CELL COUNT,WBC 7.04 K/uL (3.9-11.3)
[2023-02-26 11:42] LABS: BACTERIA,URINE 2+ (NEGATIVE); EPITHELIAL CELLS,URINE MODERATE (NONE-FEW); MUCUS,URINE LIGHT (NONE-MOD)
[2023-02-26 12:14] LABS: ALBUMIN 3.5 g/dL (3.4-5.0); BILIRUBIN TOTAL 0.7 mg/dL (0.2-1.0); CALCIUM 9.2 mg/dL (8.5-10.1); CARBON DIOXIDE,CO2 28.1 mmol/L (21.0-32.0); CREATININE 1.2 mg/dL (0.8-1.3); EST CRCL DRUG DOSING (CG) 80.18 mL/min; POTASSIUM,K 3.8 mmol/L (3.5-5.1); PROTEIN TOTAL,TP 6.9 g/dL (6.4-8.2)
[2023-02-26 13:11] LABS: APPEARANCE,URINE SLT CLOUDY; BILIRUBIN,URINE NEGATIVE (NEGATIVE); COLOR,URINE YELLOW; GLUCOSE,URINE NEGATIVE (NEGATIVE); KETONES,URINE NEGATIVE (NEGATIVE); LEUKOCYTE ESTERASE,URINE MODERATE (NEGATIVE); NITRITE,URINE NEGATIVE (NEGATIVE); OCCULT BLOOD,URINE LARGE (NEGATIVE); PH,URINE 5.5 (5.0-8.0); PROTEIN,URINE NEGATIVE (NEGATIVE); UROBILINOGEN,URINE 0.2 EU/dL (<2.0)
[2023-02-26] MEDS ORDERED: cefTRIAXone 1 GM in Sodium Chloride 0.9% 50 ML IV ONE (13:31)
[2023-02-26 13:39] LABS: BACTERIA,URINE FEW (NEGATIVE); EPITHELIAL CELLS,URINE FEW (NONE-FEW); WBC,URINE 75-100 (0-5/HPF)
[2023-02-26] MEDS ORDERED: Iopamidol 755 MG/ML 500 ML Multipack Bottle IVPUSH STA (14:26)
[2023-02-26 15:19] VITALS: BP 135/81; PULSE 83
== END 2023-02-26 15:19 | disposition home or self-care (01) ==
LOC: MW.ED 09:47
DX: N20.0 Calculus of kidney (principal); I10 Essential (primary) hypertension; K21.9 Gastro-esophageal reflux disease without esophagitis; E66.9 Obesity, unspecified; Z79.899 Other long term (current) drug therapy; Z88.5 Allergy status to narcotic agent; Z88.6 Allergy status to analgesic agent; Z68.38 Body mass index [BMI] 38.0-38.9, adult
CPT/HCPCS: 36415; 74177; 80053; 81001; 85025; 87086; 96361; 96365; 99284; J0696; J3490; J7030; Q9967

== ENCOUNTER 2023-03-08 16:47 | Emergency (ER) | payer OTHER, BC ==
[2023-03-08] MEDS ORDERED: Sodium Chloride 0.9% 1,000 ML IV STA (17:19)
[2023-03-08] MEDS ORDERED: Ketorolac 30 MG/ML SDV IVPUSH ONE (17:41)
[2023-03-08 17:51] LABS: BASOPHILS ABSOLUTE AUTO 0.02 K/uL (0.00-0.20); BASOPHILS PERCENT AUTO 0.2 % (0.0-1.0); EOSINOPHILS ABSOLUTE AUTO 0.03 K/uL (0.00-0.45); EOSINOPHILS PERCENT AUTO 0.3 % (0.0-6.0); HEMOGLOBIN 14.7 g/dL (14.0-18.0); IMMATURE GRAN ABSOLUTE AUTO 0.03 K/uL (0.00-0.05); IMMATURE GRAN PERCENT AUTO 0.3 % (0.0-0.4); LYMPHOCYTES ABSOLUTE AUTO 1.06 K/uL (1.00-4.80); LYMPHOCYTES PERCENT AUTO 11.7 % (24.0-44.0); MEAN CORPUSCULAR HEMOGLOBIN 31.3 pg (28.0-32.0); MEAN CORPUSCULAR HGB CONC 35.9 g/dL (32.0-36.0); MEAN CORPUSCULAR VOLUME 87.4 fL (83.0-99.0); MEAN PLATELET VOLUME 9.6 fL (9.4-12.4); MONOCYTES PERCENT AUTO 8.9 % (0.0-8.0); NEUTROPHILS ABSOLUTE AUTO 7.09 K/uL (1.80-7.70); NEUTROPHILS PERCENT AUTO 78.6 % (41.0-71.0); PLATELET COUNT,PLT 186 K/uL (150-400); RED BLOOD CELL COUNT 4.69 M/uL (4.52-5.90); WHITE BLOOD CELL COUNT,WBC 9.03 K/uL (3.9-11.3)
[2023-03-08 18:20] LABS: APPEARANCE,URINE SLT CLOUDY; BILIRUBIN,URINE NEGATIVE (NEGATIVE); COLOR,URINE YELLOW; GLUCOSE,URINE NEGATIVE (NEGATIVE); KETONES,URINE NEGATIVE (NEGATIVE); LEUKOCYTE ESTERASE,URINE SMALL (NEGATIVE); NITRITE,URINE NEGATIVE (NEGATIVE); OCCULT BLOOD,URINE LARGE (NEGATIVE); PROTEIN,URINE 30 mg/dL (NEGATIVE)
[2023-03-08 18:26] LABS: A/G RATIO 1.1 (0.9-1.6); ALBUMIN 3.7 g/dL (3.4-5.0); BILIRUBIN TOTAL 0.9 mg/dL (0.2-1.0); CALCIUM 8.8 mg/dL (8.5-10.1); CARBON DIOXIDE,CO2 26.9 mmol/L (21.0-32.0); CREATININE 1.3 mg/dL (0.8-1.3); EST CRCL DRUG DOSING (CG) 74.01 mL/min; POTASSIUM,K 3.6 mmol/L (3.5-5.1); PROTEIN TOTAL,TP 7.2 g/dL (6.4-8.2)
[2023-03-08 18:28] LABS: CORONAVIRUS COVID-19 NAA NEGATIVE (NEGATIVE); INFLUENZA A NAA NEGATIVE (NEGATIVE); INFLUENZA B NAA NEGATIVE (NEGATIVE); RESPIRATORY SYNCYTIAL VIR NAA NEGATIVE (NEGATIVE)
[2023-03-08 18:46] LABS: BACTERIA,URINE RARE (NEGATIVE); EPITHELIAL CELLS,URINE RARE (NONE-FEW); RBC,URINE 55-60 (0-2/HPF)
[2023-03-08] MEDS ORDERED: Iopamidol 755 MG/ML 500 ML Multipack Bottle IVPUSH ONE (19:04)
[2023-03-08] MEDS ORDERED: Ciprofloxacin in D5W 400 MG in Premix Bag 1 BAG IV SCH ×2 (20:15)
[2023-03-09 05:14] VITALS: BP 160/102; PULSE 89
== END 2023-03-08 21:30 | disposition home or self-care (01) ==
LOC: MW.ED 16:47
DX: R50.9 Fever, unspecified (principal); I10 Essential (primary) hypertension; K21.9 Gastro-esophageal reflux disease without esophagitis; E66.9 Obesity, unspecified; Z79.899 Other long term (current) drug therapy; Z88.6 Allergy status to analgesic agent; Z68.41 Body mass index [BMI] 40.0-44.9, adult
CPT/HCPCS: 0241U; 36415; 74177; 80053; 81001; 83605; 85025; 87086; 96361; 96365; 96375; 99284; J0744; J1885; J7030; Q9967